=== PATIENT | female | born 1995 | race African-American/Black ===

== ENCOUNTER 2020-11-25 15:10 | Outpatient (CLI) | payer OTHER, SELFPAY ==
--- NOTE | ~2020-11-25 | US_ITS ---
EXAMINATION: US OB <= 14 weeks fetus DATE: 11/25/2020 15:53 INDICATION: Encounter for supervision of normal . TECHNIQUE: Real-time transabdominal and transvaginal pelvic ultrasound was performed. COMPARISON: None. FINDINGS: TRANSABDOMINAL ULTRASOUND: The uterus measures 9.1 x 5.8 x 6.8 cm. TRANSVAGINAL ULTRASOUND: There is an intrauterine gestational sac. A yolk sac is identified. The fet al crown rump length measures 0.8 cm, which correlates with an estimated gestational age of 6 weeks a nd 5 day(s) (+/-) 4 day(s). heart motion is identified measuring 137 beats per minute (bpm) by M-mode Doppler. The right ovary measures 1.5 x 2.2 x 1.3 cm. The left ovary measures 2.2 x 2.7 x 2.9 cm. There is no free fluid in the pelvis. IMPRESSION: 1. Single living intrauterine gestational with estimated date of delivery of 07/16/21. Reviewed, dictated and finalized at location A. IMPRESSION: 1. Single living intrauterine gestational with estimated date of delivery of 1 09/15/20.
== END 2020-11-25 15:11 | disposition home or self-care (01) ==
PROVIDERS: Visit Provider Obstetrics & Gynecology
DX: Z36.89 Encounter for other specified antenatal screening (principal)
CPT/HCPCS: 76801

== ENCOUNTER 2021-02-22 09:37 | Outpatient (CLI) | payer OTHER, SELFPAY ==
--- NOTE | ~2021-02-22 | US_ITS ---
EXAMINATION: US OB /maternal detail DATE: 02/22/2021 10:31 INDICATION: Second trimester anatomic survey TECHNIQUE: Real-time ultrasound of the pelvis was performed. COMPARISON: None. FINDINGS: There is a single living fetus in vertex presentation. The placenta is anterior and 6.3 cm from the i nternal cervical os. heart rate is 161 beats per minute (bpm). cardiac activity and feta l movement are noted. The amniotic fluid index is subjectively normal. The following anatomy was identified as normal: 4 chamber heart 3 vessel cord cord insertion kidneys urinary bladder stomach spine diaphragm ventricles cisterna magna cerebellum The following biometric data were obtained: Biparietal diameter (BPD): 4.7 cm; head circumference (HC): 18.4 cm; abdominal circumference (AC): 15 .4 cm; femur length (FL): 3.3 cm. These measurements are concordant. Estimated weight is 357 g +/- 53 g, which correlates with the 95th percentile when 07/16/2021 i s used as estimated date of delivery. As single measurements, these parameters are each equal to the following estimated gestational ages w ith ranges of +/- 2 standard deviations: BPD: 20 weeks 3 days ( 18 weeks 5 days - 22 weeks 1 days). HC: 20 weeks 5 days ( 19 weeks 2 days - 22 weeks 2 days). AC: 20 weeks 4 days ( 18 weeks 4 days - 22 weeks 5 days). FL: 20 weeks 2 days ( 18 weeks 3 days - 22 weeks 1 days). estimated gestational age based solely on measurements from this exam is 20 weeks 4 days +/- 1 weeks 3 days. IMPRESSION: 1. Single living fetus in vertex presentation. 2. Estimated weight is 357 g +/- 53 g, which correlates with the 95th percentile when 1 is used as estimated date of delivery. Reviewed, dictated and finalized at location B. IMPRESSION: 1. Single living fetus in vertex presentation. 2. Estimated weight is 357 g +/- 53 g, which correlates with the 95th per centile when 07/16/2021 is used as estimated date of delivery.
== END 2021-02-22 09:38 | disposition home or self-care (01) ==
PROVIDERS: PCP Obstetrics & Gynecology; Visit Provider Obstetrics & Gynecology
DX: Z34.92 Encounter for supervision of normal pregnancy, unspecified, second trimester (principal)
CPT/HCPCS: 76805

== ENCOUNTER 2021-06-02 09:49 | Outpatient (CLI) | payer OTHER, SELFPAY ==
--- NOTE | ~2021-06-02 | US_ITS ---
EXAMINATION: US OB follow up DATE: 06/02/2021 10:33 INDICATION: Supervision of normal during third trimester TECHNIQUE: Real-time ultrasound of the pelvis was performed. The interpreting radiologist was not pre sent for the study. COMPARISON: 02/22/2021 FINDINGS: There is a single living fetus in vertex presentation. The placenta is anterior. heart rate is 150 beats per minute (bpm). The amniotic fluid index is 1.3 cm, which is normal (5th%-95%: 8.3-24.5 cm at 33 weeks estimated gestational age). The following biometric data were obtained: BPD: 8.7 cm -> 35 weeks 0 days Head circumference: 32.5 cm -> 36 weeks 6 days Abdominal circumference: 31.0 cm -> 35 weeks 0 days Femur length: 6.8 cm -> 35 weeks 1 days These measurements are concordant. Head circumference to abdominal circumference ratio: 1.05 (normal range 0.93-1.09). Estimated weight: 2616 g (+/-) 392 g or 5 lbs. 12 oz. (+/-) 14 oz. IMPRESSION: 1. Single living fetus in vertex presentation with heart rate of 150 bpm. 2. Normal amniotic fluid index of 12.3 cm. 3. Estimated weight is 85th percentile by Hadlock criteria when 07/16/2021 is used as the estim ated date of delivery (SHANTA). Please correlate with clinical information or earlier ultrasounds for mo st accurate SHANTA. Reviewed, dictated and finalized at location A. IMPRESSION: 1. Single living fetus in vertex presentation with heart rate of 150 bpm. 2. Normal amniotic fluid index of 12.3 cm. 3. Estimated weight is 85th percentile by Hadlock criteria when 1 is used as the estimated date of delivery (SHANTA). Please correlate with clinic al information or earlier ultrasounds for most accurate SHANTA.
== END 2021-06-02 09:50 | disposition home or self-care (01) ==
LOC: ANHIMG 09:52
PROVIDERS: PCP Obstetrics & Gynecology; Visit Provider Obstetrics & Gynecology
DX: Z36.89 Encounter for other specified antenatal screening (principal)
CPT/HCPCS: 76816